=== PATIENT | female | born 1945 | race Caucasian/White ===

== ENCOUNTER 2017-09-10 17:44 | Emergency (ER) | payer MEDICARE ==
[~2017-09-10] VITALS: Ht 157.5 cm; Wt 88.5 kg
[~2017-09-10 17:44] MED LIST: [UNRECOGNIZED DRUG - REMARK]
--- OUTSIDE RECORDS SUMMARY | 2017-09-10 17:46 | XMS REPORT | Clinical Summary ---
Author Author [facility] [place] [facility] Organization [facility] Address Unknown Phone Unavailable Care Team Providers Care Zmt Operator Name Role Phone Lukas Cobb MD PCP Unavailable Allergies Active Allergy Reactions Severity Noted Date Comments Meperidine GI Intolerance 08/14/2017 Ibuprofen GI Intolerance 08/14/2017 Methadone GI Intolerance Medium 08/20/2017 Morphine GI Intolerance 08/14/2017 Nsaids (Non-Steroidal GI Intolerance 08/14/2017 ulcers Anti-Inflammatory Drug) Sulfa (Sulfonamide Rash Low 08/14/2017 Antibiotics) Current Medications Prescription Sig. Disp. Refills Start End Date Status Date dexlansoprazole Take 60 mg by mouth Active (DEXILANT) 60 mg capsule daily. solifenacin (VESICARE) 10 Take 10 mg by mouth Active MG tablet daily. HYDROcodone-acetaminophen Take 1 tablet by mouth Active (NORCO) 10-325 mg per every 6 (six) hours as tablet needed for moderate pain. oxyCODone (OxyCONTIN) 20 Take 20 mg by mouth. Active mg tablet,oral only,ext.rel.12 hr ER tablet ergocalciferol (VITAMIN Take 50,000 Units by Active D2) 50,000 unit capsule mouth once a week. lidocaine (LIDODERM) 5 % Place 1 patch on the skin Active daily. Remove & Discard patch within 12 hours or as directed by CALCIUM CARBONATE/VITAMIN Take by mouth. Active D3 (CALTRATE 600 + D ORAL) cetirizine (ZyrTEC) 10 MG Take 1 tablet (10 mg 30 tablet 0 08/28/19 09/27/19 Active tablet total) by mouth daily for 18 18 30 days. cetirizine (ZyrTEC) 10 MG Take 10 mg by mouth 08/27/19 Discontin tablet daily. 18 ued Active Problems Problem Noted Date Status post lumbar spine operative procedure for decompression of spinal cord Preop testing 08/20/2017 Encounters Date Type Specialty Care Team Description 08/20/2017 [facility] General Surgery Yoel Sandoval, Preop testing - Encounter 08/26/2017 Selena Lopez MD 08/20/2017 Anesthesia General Surgery Richard Parkinson MD Event 08/20/2017 Procedure Pass General Surgery 08/20/2017 Surgery General Surgery Yoel Sandoval, DECOMPRESSION, FUSION, MD BONE MARROW ASPIRATE L4-5 08/14/2017 [facility] Radiology Yoel Sandoval, Encounter 08/14/2017 Pre-Admit Pre-Admission Testing Yoel Sandoval, Preop testing (Primary Testing MD Dx) Appointment after 09/09/2016 Family History Medical History Relation Name Comments Diabetes Brother Diabetes Father Diabetes Maternal Grandfather Relation Name Status Comments Brother Father Maternal Grandfather Social History Tobacco Use Types Packs/Day Years Used Date Never Smoker Smokeless Tobacco: Never Used Alcohol Use Drinks/Week oz/Week Comments No Sex Assigned at Date Recorded Not on file Last Filed Vital Signs Vital Sign Reading Time Taken Blood Pressure 119/67 08/26/2017 3:55 PM CDT Pulse 74 08/26/2017 3:55 PM CDT Temperature 35.7 C (96.3 F) 08/26/2017 3:55 PM CDT Respiratory Rate 20 08/26/2017 3:55 PM CDT Oxygen Saturation 96% 08/26/2017 3:55 PM CDT Inhaled Oxygen - - Concentration Weight 94.8 kg (209 lb) 08/20/2017 7:18 AM CDT Height 152.4 cm (5') 08/20/2017 7:18 AM CDT Body Mass Index 40.82 08/20/2017 7:18 AM CDT Plan of Treatment Health Maintenance Due Date Last Done Comments COLONOSCOPY 1996 MAMMOGRAM 1996 ZOSTER VACCINE 2006 PNEUMOCOCCAL 2011 POLYSACCHARIDE VACCINE AGE 65 AND OVER PNEUMOCOCCAL-13 2011 INFLUENZA VACCINE 12/31/2017 Implants Implanted Type Area Padder Device Expiration Model / Identifier Date Serial / Lot Chip Bone Cancellous 15cc 4-9.5mm - Human N/A: Spine ALLOSOURCE 09/16 [id number] / [id number] - [id number] Tissue Lumbar [id number] Implanted: Qty: 1 on 08/20/2017 by Implants / Yoel Sandoval MD [id number] Probe Pedcl Thor Nim-Spine - Spinal N/A: Spine MEDTRONIC 02/14/2022 [id number] / [id number] Implants Lumbar SPINAL AND / Implanted: Qty: 1 on 08/20/2017 by BIOLOGICS [id number] Yoel Sandoval MD Screw Set Break Flush - [id number] Spinal N/A: Spine [employer]IC [id number] / Implanted: Qty: 4 on 08/20/2017 by Implants Lumbar SPINAL AND / Yoel Sandoval MD BIOLOGICS Connector Spinal Sm Tsrh 3dx - Spinal N/A: Spine [employer]TR[employer]IC [id number] / [id number] Implants Lumbar SPINAL AND / Implanted: Qty: 4 on 08/20/2017 by BIOLOGICS NA Yoel Sandoval MD Screw Spinal Thin [id number] Tsrh Spinal N/A: Spine [employer]TR[employer]IC [id number] / Osteogrip - [id number] Implants Lumbar SPINAL AND / Implanted: Qty: 2 on 08/20/2017 by Yoel Ambrosio MD Screw Spinal Thin 6.5x50mm Tsrh Spinal N/A: Spine [employer]IC [id number] / Osteogrip - [id number] Implants Lumbar SPINAL AND / Implanted: Qty: 2 on 08/20/2017 by Yoel Ambrosio MD Rg Spinal 40mm Chromaloy Pl - Spinal N/A: Spine [employer]IC [id number] Implants Lumbar SPINAL AND / Implanted: Qty: 2 on 08/20/2017 by CARRILLO / Yoel Sandoval MD NA Filler Bone Void 10ml Pastemix Plus Surgical N/A: Spine ISTO 2017 IQSP PP - [id number] Bone Lumbar [employer]OLOG[employer] 110 / Implanted: Qty: 1 on 08/20/2017 by [employer] / Yoel Sandoval MD [id number] Hemostatic Matrix W/Thrombin Surgical Bilateral: ETHICON - 2994 / 8ml Surgiflo - [id number] Implants; Spine / Implanted: Qty: 1 on 08/20/2017 by Expanders; Lumbar [id number] Yoel Sandoval MD Extenders; Surgical Wires Procedures Procedure Name Priority Date/Time Associated Diagnosis Comments MT AN ELECTIVE Routine 08/20/2017 ENDOTRACHEAL AIRWAY 10:09 AM CDT Procedure Note - Mey Rothman CRNA - 08/20/2017 10:09 AM CDT Airway Date/Time: 08/20/2017 9:25 AM Performed by: MEY ROTHMAN Authorized by: RICHARD PARKINSON Location: OR Urgency: Elective Difficult Airway: No Anesthesio logist: RICHARD PARKINSON Resident/C RNA/AA: MEY RTOHMAN Performed by: resident/C RNA and resident/C RNA/AA Preoxygena patricia with 100% O2: Yes C-spine Precaution s Maintained Throughout : Yes Mask Ventilatio n: Easy mask Final Airway Type: Endotrache al airway Final Endotrache al Airway: ETT Cuffed: Yes Technique Used: Direct laryngosco py Insertion Site: Oral Blade Type: Richard Laryngosco pe Blade/Vide olaryngosc ope Blade Size: 2 ETT Size (mm): 7.0 Cuff at minimum occlusion pressure: Yes Measured from: Lips ETT to Lips (cm): 21 Placement Verified by: CO2 detection, direct visualizat ion and equal breath sounds Laryngosco pic view: Grade IIa - partial view of glottis Rapid Sequence Induction (RSI): No Modified RSI: No Number of Attempts at Approach: 1 Teeth intact, atraumatic intubation DECOMPRESSION, FUSION, 08/20/2017 LUMBAR STENOSIS, BONE MARROW ASPIRATE L4-5 8:30 AM CDT SPONDYLOLITHESIS L4-5 Case Notes FAX Special Needs SUE FRAME, C-ARM, LOOMIS CATH, TEDS, SCDS, CELL SAVER, CLINDAMYCI N 900 MG IV, SSEPSCHEDU LE WITH [facility] (SSEP) CONF #[id number] Jayson black with medtr[employer] notified of case scheduled for 08/20/20171 325 mw 08/19/19 18 after 09/09/2016 Results * Estimated GFR (08/23/2017 6:05 AM) Only the most recent of 4 results within the time period is included. Component Value Ref Range GFR Non Af Amer 62 mL/min/1.73 m2 GFR Af Amer 75 mL/min/1.73 m2 Comment: Chronic kidney disease: <60 mL/min/1.73m2 Kidney failure: <15 mL/min/1.73m2 The estimated GFR is calculated from the IDMS-traceable Modification of Diet in Renal Disease Equation. The accuracy of the calculation is poor when the creatinine is normal. Calculated values >90 mL/min/1.73m2 are not reported. This equation has not been validated in children (<18 years), women, the elderly (>70 years), or ethnic groups other than Caucasians and Americans. Specimen Performing Laboratory Plasma specimen [facility] PATH[facility] AND [address] [place] [address] * CBC hemogram (08/23/2017 6:05 AM) Only the most recent of 3 results within the time period is included. Component Value Ref Range WBC 7.95 4.50 - 11.00 k/uL RBC 2.95 (L) 4.20 - 5.50 m/uL HGB 9.4 (L) 12.0 - 16.0 g/dL HCT 28.8 (L) 37.0 - 47.0 % MCV 97.6 82.0 - 100.0 fL MCH 31.9 27.0 - 34.0 pg MCHC 32.6 31.0 - 37.0 g/dL RDW - SD 43.9 37.0 - 55.0 fL MPV 9.9 8.8 - 13.2 fL Platelet count 203 150 - 400 k/uL Nucleated RBC 0.00 /100 WBC Specimen Performing Laboratory Blood [facility] PATHOLOGY AND [address] [place] [address] * Basic metabolic panel (08/23/2017 6:05 AM) Only the most recent of 4 results within the time period is included. Component Value Ref Range Sodium 137 135 - 148 mEq/L Potassium 4.0 3.5 - 5.0 mEq/L Chloride 101 98 - 112 mEq/L CO2 25 24 - 31 mEq/L Anion gap 11 7 - 15 mEq/L Comment: Starting from August , anion gap calculation no longer incorporates potassium. Please note the change. BUN 13 8 - 23 mg/dL Creatinine 0.9 0.5 - 0.9 mg/dL Glucose 103 (H) 65 - 99 mg/dL Calcium 8.7 (L) 8.8 - 10.2 mg/dL Specimen Performing Laboratory Plasma specimen [facility] DEPARTMENT OF PATHOLOGY AND [address] [place] [address] * XR Lumbar Spine 2 Or 3 Vw (08/22/2017 9:15 AM) Only the most recent of 2 results within the time period is included. Specimen Performing Laboratory [address] [address] Narrative EXAMINATION:XR LUMBAR SPINE 2 OR 3 VW COMPARISON:None CLINICAL HISTORY:FOLLOW UP LUMBAR SPINE FUSION FINDINGS: There is posterior L4-5 fusion with pedicle screws and rods in place. There is a persistent grade 1 anterior listhesis of L4 on L5. There are mild degenerative changes. There are compression fractures of T11-L3. IMPRESSION: Posterior L4-5 fusion in good position. [facility]-[id number] Procedure Note Interface, Radiology Results Incoming - 08/22/2017 9:27 AM CDT EXAMINATION: XR LUMBAR SPINE 2 OR 3 VW COMPARISON: None CLINICAL HISTORY: FOLLOW UP LUMBAR SPINE FUSION FINDINGS: There is posterior L4-5 fusion with pedicle screws and rods in place. There is a persistent grade 1 anterior listhesis of L4 on L5. There are mild degenerative changes. There are compression fractures of T11-L3. IMPRESSION: Posterior L4-5 fusion in good position. [facility]-[id number] * Type and screen (08/20/2017 6:17 PM) Only the most recent of 2 results within the time period is included. Component Value Ref Range ABO grouping A Rh type POS Antibody screen NEG Specimen Performing Laboratory [facility] DEPARTMENT OF PATHOLOGY AND [address] [place] [address] * OR [place] > I Hour (08/20/2017 12:45 PM) Specimen Performing Laboratory [address] [address] Narrative EXAMINATION:OR [place] 1 HOUR C-arm fluoroscopy was requested in OR. FLUORO TIME 00:18 SECS IMAGES 4 IMPRESSION: Separate operative report will be issued by the physician performing the procedure. [id number] Procedure Note Interface, Radiology Results Incoming - 08/20/2017 3:53 PM CDT EXAMINATION: OR [place] 1 HOUR C-arm fluoroscopy was requested in OR. FLUORO TIME 00:18 SECS IMAGES 4 IMPRESSION: Separate operative report will be issued by the physician performing the procedure. [id number] * XR Chest 2 Vw (08/14/2017 11:53 AM) [facility] [address] [place] [address] Narrative EXAMINATION:XR CHEST 2 VW CLINICAL HISTORY:Z01.818 Encounter for other preprocedural examination, preop COMPARISON:None FINDINGS: The heart size is borderline. Aorta is dilated and tortuous. The mediastinum is unremarkable. There is mild basilar atelectasis or scar. There are postop changes from a previous right shoulder arthroplasty. There is mild wedging of one of the lower thoracic vertebra probably old. IMPRESSION: 1. Mild scarring or atelectasis at both lung bases. 2. Postop changes left shoulder [id number] Procedure Note Interface, Radiology Results Incoming - 08/14/2017 1:12 PM CDT EXAMINATION: XR CHEST 2 VW CLINICAL HISTORY: Z01.818 Encounter for other preprocedural examination, preop COMPARISON: None FINDINGS: The heart size is borderline. Aorta is dilated and tortuous. The mediastinum is unremarkable. There is mild basilar atelectasis or scar. There are postop changes from a previous right shoulder arthroplasty. There is mild wedging of one of the lower thoracic vertebra probably old. IMPRESSION: 1. Mild scarring or atelectasis at both lung bases. 2. Postop changes left shoulder [id number] * ECG 12 lead (08/14/2017 11:06 AM) Component Value Ref Range Ventricular rate 65 Atrial rate 65 MT interval 160 QRSD interval 76 QT interval 416 QTC interval 432 P axis 1 28 QRS axis 1 4 T wave axis 26 EKG impression Normal sinus rhythm-Cannot rule out Anterior infarct , age undetermined-Abnormal ECG-In automated comparison with ECG of 05-FEB-2011 13:27,-No significant change was found- Specimen Performing Laboratory [facility] [address] [place] [address] * Partial thromboplastin time, activated (08/14/2017 10:17 AM) Component Value Ref Range PTT 29.8 23.0 - 36.0 sec Comment: PTT therapeutic range for unfractionated heparin is 61.0-112.0 seconds which corresponds to Anti-Xa 0.3-0.7 U/ml. Specimen Performing Laboratory Blood [facility] DEPARTMENT OF PATHOLOGY AND GENOMIC MEDICINE [address] [place] [address] * Prothrombin time with INR (08/14/2017 10:17 AM) Component Value Ref Range Prothrombin time 13.2 12.0 - 15.0 sec INR 1.0 Comment: The International Normalized Ratio (INR) is a therapeutic monitoring tool for patients who are stable on oral anticoagulant therapy. An INR of 2.0-3.0 is suggested for deep vein thrombosis/pulmonary embolism. Specimen Performing Laboratory Blood [facility] DEPARTMENT OF PATHOLOGY AND GENOMIC MEDICINE [address] [place] [address] * CBC with platelet and differential (08/14/2017 10:17 AM) Component Value Ref Range WBC 7.88 4.50 - 11.00 k/uL RBC 4.41 4.20 - 5.50 m/uL HGB 14.0 12.0 - 16.0 g/dL HCT 42.3 37.0 - 47.0 % MCV 95.9 82.0 - 100.0 fL MCH 31.7 27.0 - 34.0 pg MCHC 33.1 31.0 - 37.0 g/dL RDW - SD 42.0 37.0 - 55.0 fL MPV 9.9 8.8 - 13.2 fL Platelet count 292 150 - 400 k/uL Nucleated RBC 0.00 /100 WBC Neutrophils 66.5 39.0 - 69.0 % Lymphocytes 21.8 (L) 25.0 - 45.0 % Monocytes 8.8 0.0 - 10.0 % Eosinophils 1.4 0.0 - 5.0 % Basophils 1.1 (H) 0.0 - 1.0 % Immature granulocytes 0.4Comment: "Immature granulocytes" 0.0 - 1.0 % (promyelocytes, myelocytes, metamyelocytes) Specimen Performing Laboratory Blood [facility] DEPARTMENT OF PATHOLOGY AND GENOMIC MEDICINE [address] [place] [address] after 09/09/2016 Insurance Payer Benefit Subscriber ID Type Phone Address Plan / Group [employer] C[employer] xxxxxxxxxxx [facility] M[facility] ADV
--- NOTE | 2017-09-10 19:50 | Diagnostic Imaging Report ---
RADIOGRAPH(S) OF THE ABDOMEN AND PELVIS, 4 view(s) HISTORY: Abdominal pain COMPARISON: Lumbar spine radiographs August 15, 2011. FINDINGS: Soft tissue attenuation partially limits sensitivity of the exam. Low lung volumes result in bibasilar vascular crowding, accentuation of the pulmonary interstitial markings, central pulmonary vasculature, and the cardiac silhouette. Allowing for these limitations, the findings are as follows: Mild bibasilar atelectasis. Moderate colonic fecal burden. No specific evidence of obstruction or ileus. No definite urinary tract calcification. The bones are partially obscured by stool and overlying bowel gas. Diffusely decreased mineralization of the osseous structures limits bone detail. A mildly displaced fracture deformity involving the lateral aspect of the left eighth rib. A stable appearing compression deformity involving T11. Multilevel degenerative changes. Interval L4-5 posterior fusion via bilateral jenna and pedicle screw constructs, partially evaluated. Partially visualized right shoulder hemiarthroplasty. IMPRESSION: 1. Nonobstructive bowel gas pattern. 2. Status post L4-5 posterior fusion. 3. Stable appearing T11 compression fracture deformity, when allowing for the limitations of abdominal radiographs for evaluation. 4. A mildly displaced left lateral eighth rib fracture. Signed by: Dr. Quinn Lema D.O., M.M.M. on 09/10/2017 7:47 PM
[2017-09-10 19:55] LABS: BASOPHILS # (AUTO) 0.1 (0.0-0.1); BASOPHILS % 0.7 % (0.0-1.0); EOSINOPHILS # (AUTO) 0.2 (0.0-0.4); EOSINOPHILS % 3.1 % (0.0-6.0); HEMATOCRIT 36.2 % (34.2-44.1); HEMOGLOBIN 11.9 g/dL (12.0-16.0); LYMPHOCYTES # (AUTO) 2.1 (1.0-3.2); LYMPHOCYTES % 29.4 % (18.0-39.1); MEAN CORPUSCULAR HEMOGLOBIN 31.7 pg (28-32); MEAN CORPUSCULAR HGB CONC 32.9 g/dL (31-35); MEAN CORPUSCULAR VOLUME 96.5 fL (81-99); MONOCYTES # (AUTO) 0.8 (0.2-0.8); MONOCYTES % 11.3 % (4.4-11.3); NEUTROPHILS # (AUTO) 3.9 (2.1-6.9); NEUTROPHILS % 55.2 % (38.7-80.0); PLATELET COUNT 376 x10e3/uL (140-360); RED BLOOD COUNT 3.75 x10e6/uL (3.6-5.1); RED CELL DISTRIBUTION WIDTH 12.7 % (11.7-14.4)
[2017-09-10] MEDS ORDERED: MORPHINE SULFATE 2 MG/ML SYR IV STA (19:57)
[2017-09-10] MEDS ORDERED: HYDROMORPHONE 1MG/1ML INJ IV STA (20:11)
[2017-09-10 20:12] LABS: ALANINE AMINOTRANSFERASE 20 IU/L (0-55); ALBUMIN 3.2 g/dL (3.5-5.0); ALBUMIN/GLOBULIN RATIO 0.8 (0.8-2.0); ALKALINE PHOSPHATASE 106 IU/L (40-150); ANION GAP 15.4 mmol/L (8-16); BLOOD UREA NITROGEN 8 mg/dL (7-26); BUN/CREATININE RATIO 9 (6-25); CALCIUM 9.8 mg/dL (8.4-10.2); CARBON DIOXIDE 26 mmol/L (22-29); CHLORIDE 99 mmol/L (98-107); CREATININE, SERUM 0.89 mg/dL (0.57-1.11); EST GLOMERULAR FILTRATION RATE > 60 ML/MIN (60-); GLUCOSE 102 mg/dL (74-118); POTASSIUM 4.4 mmol/L (3.5-5.1); SODIUM 136 mmol/L (136-145)
[2017-09-10 21:11] VITALS: BP 127/74
== END 2017-09-10 21:39 ==
LOC: ER 17:44
DX: K59.00 Constipation, unspecified (principal); R10.10 Upper abdominal pain, unspecified; Z88.6 Allergy status to analgesic agent; Z88.5 Allergy status to narcotic agent; Z88.2 Allergy status to sulfonamides; Z88.8 Allergy status to other drugs, medicaments and biological substances
CPT/HCPCS: 36415; 74022; 80053; 85025; 99284; J1170; J2270